=== PATIENT | male | born 1975 | race Caucasian/White ===

== ENCOUNTER 2020-03-19 16:46 | Emergency (ER) | payer OTHER ==
[~2020-03-19 16:46] MED LIST: AUGMENTIN 500-1 EACH PO; ELIQUIS5 MG PO; NAPROSYN500 MG PO
== END 2020-03-19 19:02 | disposition home or self-care (01) ==
LOC: ER1 16:46
DX: I82.622 Acute embolism and thrombosis of deep veins of left upper extremity (principal); E88.01 Alpha-1-antitrypsin deficiency
CPT/HCPCS: 93971; 99283

== ENCOUNTER → 2020-03-26 | Outpatient (CLI) | payer OTHER | LOC: LAB 11:34 | DX: I82.402 Acute embolism and thrombosis of unspecified deep veins of left lower extremity (principal); D68.59 Other primary thrombophilia | CPT/HCPCS: 36415; 85520 ==

== ENCOUNTER → 2020-04-03 | Outpatient (CLI) | payer OTHER | LOC: LAB 11:19 | DX: I82.402 Acute embolism and thrombosis of unspecified deep veins of left lower extremity (principal); D68.59 Other primary thrombophilia | CPT/HCPCS: 36415; 85520 ==

== ENCOUNTER → 2020-04-08 | Outpatient (CLI) | payer OTHER | LOC: LAB 11:19 | DX: Z51.81 Encounter for therapeutic drug level monitoring (principal); Z79.01 Long term (current) use of anticoagulants; I82.402 Acute embolism and thrombosis of unspecified deep veins of left lower extremity; D68.59 Other primary thrombophilia | CPT/HCPCS: 36415; 85520 ==

== ENCOUNTER → 2020-04-29 | Outpatient (CLI) | payer OTHER | LOC: CT 12:57 | DX: L02.11 Cutaneous abscess of neck (principal); I82.402 Acute embolism and thrombosis of unspecified deep veins of left lower extremity; D68.59 Other primary thrombophilia | CPT/HCPCS: 70496; 70498; Q9967 ==

== ENCOUNTER 2021-01-07 19:42 | Emergency (ER) | payer SELFPAY | END 2021-01-07 22:30 | disposition home or self-care (01) | LOC: ER1 19:42 | DX: I82.403 Acute embolism and thrombosis of unspecified deep veins of lower extremity, bilateral (principal); M79.89 Other specified soft tissue disorders; F17.290 Nicotine dependence, other tobacco product, uncomplicated; R79.1 Abnormal coagulation profile | CPT/HCPCS: 83880; 85379; 85610; 85730; 99283; J1650 ==

== ENCOUNTER → 2021-01-08 | Outpatient (CLI) | payer MEDICAID | LOC: US 13:07 | DX: M79.661 Pain in right lower leg (principal); M79.662 Pain in left lower leg; R79.89 Other specified abnormal findings of blood chemistry | CPT/HCPCS: 93970 ==

== ENCOUNTER 2021-03-22 18:40 | Emergency (ER) | payer SELFPAY | END 2021-03-22 19:25 | disposition left against medical advice (07) | LOC: ER1 18:40 | DX: Z53.21 Procedure and treatment not carried out due to patient leaving prior to being seen by health care provider (principal) ==

== ENCOUNTER 2021-04-30 22:01 | Emergency (ER) | payer SELFPAY ==
[2021-04-30 23:10] LABS: HEMOGLOBIN 15.7 gm/dl (14.0-17.5); RED BLOOD COUNT 5.06 M/UL (4.20-5.50); WHITE BLOOD COUNT 11.2 K/UL (4.5-11.0)
[2021-04-30 23:31] LABS: BUN/CREATININE RATIO 12 (0-10)
[2021-05-01] MEDS ORDERED: NAPROXEN500 MG PO (01:01)
== END 2021-05-01 01:05 | disposition home or self-care (01) ==
LOC: ER1 22:01
PROVIDERS: Physician Assistant Medical
DX: I82.812 Embolism and thrombosis of superficial veins of left lower extremity (principal); I82.492 Acute embolism and thrombosis of other specified deep vein of left lower extremity; Z86.718 Personal history of other venous thrombosis and embolism
CPT/HCPCS: 80053; 85025; 85379; 85610; 85730; 93971; 99283

== ENCOUNTER 2021-05-08 09:00 | Emergency (ER) | payer SELFPAY ==
[~2021-05-08 09:00] MED LIST changes: +NAPROXEN500 MG PO
[2021-05-08 11:23] LABS: HEMOGLOBIN 16.2 gm/dl (14.0-17.5); RED BLOOD COUNT 5.16 M/UL (4.20-5.50); WHITE BLOOD COUNT 11.6 K/UL (4.5-11.0)
[2021-05-08 12:04] LABS: BUN/CREATININE RATIO 12 (0-10)
== END 2021-05-08 12:32 | disposition home or self-care (01) ==
LOC: ER1 09:00
PROVIDERS: Nurse Practitioner
DX: R10.11 Right upper quadrant pain (principal); F17.290 Nicotine dependence, other tobacco product, uncomplicated
CPT/HCPCS: 71045; 80053; 81001; 82150; 82550; 82553; 83690; 83874; 84484; 85025; 93005; 96374; 96375; 99284; J2270; J2405; J7030; Q9967

== ENCOUNTER 2021-07-27 07:04 | Emergency (ER) | payer SELFPAY | END 2021-07-27 08:35 | disposition left against medical advice (07) | LOC: ER1 07:04 | DX: J90 Pleural effusion, not elsewhere classified (principal) | CPT/HCPCS: 99281 ==

== ENCOUNTER 2021-07-27 18:36 | Emergency (ER) | payer OTHER ==
[2021-07-27 19:27] LABS: HEMOGLOBIN 16.8 gm/dl (14.0-17.5); RED BLOOD COUNT 5.42 M/UL (4.20-5.50); WHITE BLOOD COUNT 9.6 K/UL (4.5-11.0)
[2021-07-27 19:51] LABS: BUN/CREATININE RATIO 19 (0-10)
== END 2021-07-27 22:20 | disposition home or self-care (01) ==
LOC: ER1 18:36
PROVIDERS: Emergency Medicine
DX: R07.81 Pleurodynia (principal); Z86.711 Personal history of pulmonary embolism; F17.290 Nicotine dependence, other tobacco product, uncomplicated; Z79.01 Long term (current) use of anticoagulants
CPT/HCPCS: 71045; 80053; 82550; 82553; 84484; 85025; 93005; 99285; Q9967

== ENCOUNTER 2021-09-01 09:05 | Observation (INO) | payer OTHER ==
[~2021-09-01] VITALS: Ht 172.7 cm; Wt 102.1 kg
[2021-09-01 12:09] LABS: HEMOGLOBIN 17.4 gm/dl (14.0-17.5); RED BLOOD COUNT 5.62 M/UL (4.20-5.50)
[2021-09-01 12:35] LABS: BUN/CREATININE RATIO 10 (0-10)
[2021-09-02 05:35] LABS: HEMOGLOBIN 15.3 gm/dl (14.0-17.5); RED BLOOD COUNT 5.02 M/UL (4.20-5.50); WHITE BLOOD COUNT 8.2 K/UL (4.5-11.0)
[2021-09-02 05:54] LABS: BUN/CREATININE RATIO 11 (0-10)
[2021-09-03 07:06] LABS: HEMOGLOBIN 15.8 gm/dl (14.0-17.5); RED BLOOD COUNT 5.14 M/UL (4.20-5.50); WHITE BLOOD COUNT 8.4 K/UL (4.5-11.0)
[2021-09-03 07:32] LABS: BUN/CREATININE RATIO 8 (0-10)
[2021-09-03] MEDS ORDERED: ENOXAPARIN100 MG/1 M SC (08:27)
[2021-09-03] MEDS ORDERED: WARFARIN SODIUM5 MG PO (08:27)
[2021-09-03] MEDS ORDERED: OMNICEF 300 MG300 MG PO (08:27)
== END 2021-09-03 11:27 | disposition home or self-care (01) ==
LOC: ER1 09:05 → CCU 16:15 → CDU 16:15 → CCU 22:45 → MED SURG 4 09-02 18:06
PROVIDERS: Internal Medicine; Physician Assistant; Physician Assistant Medical; ADMIT Internal Medicine
DX: I26.99 Other pulmonary embolism without acute cor pulmonale (principal); D68.59 Other primary thrombophilia; E72.12 Methylenetetrahydrofolate reductase deficiency; N28.9 Disorder of kidney and ureter, unspecified; J90 Pleural effusion, not elsewhere classified; D68.51 Activated protein C resistance; Z86.718 Personal history of other venous thrombosis and embolism; Z91.14 Patient's other noncompliance with medication regimen; Z72.0 Tobacco use; Z79.82 Long term (current) use of aspirin
CPT/HCPCS: ECHO; 36415; 71045; 80048; 80053; 82550; 82553; 83690; 83735; 84484; 85025; 85027; 85379; 85610; 87070; 87205; 93005; 93306; 93970; 96372; 96374; 96375; 96376; 99285; G0378; J0456; J0696; J1650; J2270; J7030; Q9967

== ENCOUNTER 2021-09-08 18:05 | Emergency (ER) | payer OTHER ==
[~2021-09-08 18:05] MED LIST changes: +ENOXAPARIN100 MG/1 M SC; +OMNICEF 300 MG300 MG PO; +WARFARIN SODIUM5 MG PO
[2021-09-08 19:00] LABS: HEMOGLOBIN 16.5 gm/dl (14.0-17.5); RED BLOOD COUNT 5.35 M/UL (4.20-5.50); WHITE BLOOD COUNT 8.5 K/UL (4.5-11.0)
[2021-09-08 19:15] LABS: BUN/CREATININE RATIO 13 (0-10)
== END 2021-09-08 19:46 | disposition home or self-care (01) ==
LOC: ER1 18:05
PROVIDERS: Physician Assistant
DX: T80.1XXA Vascular complications following infusion, transfusion and therapeutic injection, initial encounter (principal); I80.8 Phlebitis and thrombophlebitis of other sites; Z87.891 Personal history of nicotine dependence; Z51.81 Encounter for therapeutic drug level monitoring
CPT/HCPCS: 80048; 85025; 85610; 99283

== ENCOUNTER 2021-11-17 05:07 | Emergency (ER) | payer SELFPAY ==
[~2021-11-17] VITALS: Ht 172.7 cm; Wt 103.0 kg
[2021-11-17 05:52] LABS: RED BLOOD COUNT 5.32 M/UL (4.20-5.50); WHITE BLOOD COUNT 15.4 K/UL (4.5-11.0)
[2021-11-17 06:32] LABS: BUN/CREATININE RATIO 11 (0-10)
[2021-11-17] MEDS ORDERED: OMNICEF 300 MG300 MG PO (07:52)
== END 2021-11-17 08:30 | disposition left against medical advice (07) ==
LOC: ER1 05:07
PROVIDERS: Family Medicine
DX: J18.9 Pneumonia, unspecified organism (principal); I26.99 Other pulmonary embolism without acute cor pulmonale; M79.604 Pain in right leg; F17.290 Nicotine dependence, other tobacco product, uncomplicated; Z20.822 Contact with and (suspected) exposure to COVID-19
CPT/HCPCS: 71045; 80053; 82550; 82553; 84484; 85025; 85610; 93005; 96372; 96374; 99285; J0696; J1650; Q9967; U0002

== ENCOUNTER 2021-12-12 19:33 | Observation (INO) | payer OTHER ==
[~2021-12-12] VITALS: Ht 172.7 cm; Wt 102.1 kg
[~2021-12-12 19:33] MED LIST changes: +WARFARIN SODIU7.5 MG PO
[2021-12-13 08:46] LABS: HEMOGLOBIN 17.1 gm/dl (14.0-17.5); RED BLOOD COUNT 5.45 M/UL (4.20-5.50); WHITE BLOOD COUNT 10.6 K/UL (4.5-11.0)
[2021-12-13 08:57] LABS: BUN/CREATININE RATIO 12 (0-10)
[2021-12-14 06:47] LABS: HEMOGLOBIN 15.4 gm/dl (14.0-17.5); RED BLOOD COUNT 4.92 M/UL (4.20-5.50); WHITE BLOOD COUNT 10.1 K/UL (4.5-11.0)
[2021-12-14 07:12] LABS: BUN/CREATININE RATIO 11 (0-10)
[2021-12-15 05:55] LABS: HEMOGLOBIN 14.7 gm/dl (14.0-17.5); RED BLOOD COUNT 4.75 M/UL (4.20-5.50); WHITE BLOOD COUNT 8.4 K/UL (4.5-11.0)
[2021-12-15 06:25] LABS: BUN/CREATININE RATIO 15 (0-10)
[2021-12-15] MEDS ORDERED: PERCOCET 10-321 EACH PO ×2 (09:27→09:33)
[2021-12-15] MEDS ORDERED: ELIQUIS 5 MG TAB5 MG PO (09:32)
== END 2021-12-15 14:24 | disposition home or self-care (01) ==
LOC: ER1 19:33 → CDU 12-13 09:30 → MED SURG 4 12-13 09:30
PROVIDERS: Internal Medicine; Physician Assistant; ADMIT Internal Medicine
DX: I82.431 Acute embolism and thrombosis of right popliteal vein (principal); I82.411 Acute embolism and thrombosis of right femoral vein; I82.451 Acute embolism and thrombosis of right peroneal vein; I26.99 Other pulmonary embolism without acute cor pulmonale; E87.6 Hypokalemia; E66.01 Morbid (severe) obesity due to excess calories; F17.210 Nicotine dependence, cigarettes, uncomplicated; Z91.14 Patient's other noncompliance with medication regimen; Z68.33 Body mass index [BMI] 33.0-33.9, adult
CPT/HCPCS: 36415; 80048; 80053; 83735; 85025; 85027; 85379; 85610; 85730; 93971; 97116; 97161; 99284; G0378